=== PATIENT | male | born 1945 ===

== ENCOUNTER 2018-01-21 08:10 | Outpatient (CLI) | payer OTHER ==
[2018-01-28] MEDS ORDERED: AMLODIPINE BESYL5 MG (16:01)
[2018-01-28] MEDS ORDERED: CELECOXIB200 MG (16:01)
[2018-01-28] MEDS ORDERED: LOPERAMIDE2 MG (16:02)
== END 2018-01-21 19:12 | disposition home or self-care (01) ==
LOC: LAB 08:10
DX: R10.84 Generalized abdominal pain (principal)

== ENCOUNTER 2018-01-21 08:14 | Outpatient (CLI) | payer OTHER | END 2018-01-21 18:52 | disposition home or self-care (01) | LOC: EKG 08:14 | DX: J10.08 Influenza due to other identified influenza virus with other specified pneumonia (principal); K43.6 Other and unspecified ventral hernia with obstruction, without gangrene; Z01.810 Encounter for preprocedural cardiovascular examination; R10.13 Epigastric pain ==

== ENCOUNTER 2018-01-21 08:29 | Outpatient (CLI) | payer OTHER ==
[2018-01-28] MEDS ORDERED: AMLODIPINE BESYL5 MG (16:01)
[2018-01-28] MEDS ORDERED: CELECOXIB200 MG (16:01)
[2018-01-28] MEDS ORDERED: LOPERAMIDE2 MG (16:02)
== END 2018-01-21 18:44 | disposition home or self-care (01) ==
LOC: RAD 08:29
DX: R10.84 Generalized abdominal pain (principal)

== ENCOUNTER 2018-02-05 05:55 | Day surgery (SDC) | payer OTHER ==
[~2018-02-05 05:55] MED LIST: AMLODIPINE BESYL5 MG; CELECOXIB200 MG; LOPERAMIDE2 MG
[2018-02-05] MEDS ORDERED: NEURONTIN300 MG PO (09:13)
[2018-02-05] MEDS ORDERED: PERCOCET 5-3251 EACH PO (09:13)
[2018-02-05] MEDS ORDERED: ZOFRAN ODT4 MG PO (09:13)
[2018-02-05] MEDS ORDERED: MIRALAX17 GM PO (09:13)
== END 2018-02-05 12:06 | disposition home or self-care (01) ==
LOC: CIR.AMB 05:55
DX: K43.6 Other and unspecified ventral hernia with obstruction, without gangrene (principal); K42.0 Umbilical hernia with obstruction, without gangrene

== ENCOUNTER 2018-10-08 09:15 | Outpatient (CLI) | payer OTHER ==
[~2018-10-08 09:15] MED LIST changes: +MIRALAX17 GM PO; +NEURONTIN300 MG PO; +PERCOCET 5-3251 EACH PO; +ZOFRAN ODT4 MG PO
== END 2018-10-08 09:20 | disposition home or self-care (01) ==
LOC: LAB 09:15
DX: N39.0 Urinary tract infection, site not specified (principal); E07.1 Dyshormogenetic goiter

== ENCOUNTER 2018-10-09 10:39 | Outpatient (CLI) | payer OTHER | END 2018-10-09 16:03 | disposition home or self-care (01) | LOC: SONOGRAMA 10:39 | DX: N39.0 Urinary tract infection, site not specified (principal); R91.8 Other nonspecific abnormal finding of lung field ==

== ENCOUNTER 2019-01-06 07:52 | Outpatient (CLI) | payer OTHER | END 2019-01-06 07:57 | disposition home or self-care (01) | LOC: LAB 07:52 | DX: N40.1 Benign prostatic hyperplasia with lower urinary tract symptoms (principal) ==

== ENCOUNTER → 2020-12-21 10:38 | Outpatient (CLI) | payer OTHER | END | disposition home or self-care (01) | LOC: LAB 10:38 | PROVIDERS: ATTEND Family Medicine | DX: R30.0 Dysuria (principal) ==